=== PATIENT | female | born 2000 | race Caucasian/White ===

== ENCOUNTER 2024-10-16 01:02 | Emergency (ER) | payer BC ==
[~2024-10-16] VITALS: Ht 180.3 cm; Wt 183.3 kg
[2024-10-16] MEDS ORDERED: CEFDINIR300 MG PO (01:35)
[2024-10-16] MEDS ORDERED: Lidocaine Hydrochloride 5 ML AMP IM ONE (01:40)
== END 2024-10-16 02:00 | disposition home or self-care (01) ==
LOC: ED 01:02
DX: H66.91 Otitis media, unspecified, right ear (principal)